=== PATIENT | male | born 1955 | race Caucasian/White ===

== ENCOUNTER → 2020-06-04 10:54 | Outpatient (BNVA) | payer MEDICARE, OTHER, SELFPAY | PROVIDERS: Family Provider Physician Assistant; PCP Physician Assistant; Visit Provider Nurse Practitioner Family | DX: R94.39 Abnormal result of other cardiovascular function study (principal); I35.0 Nonrheumatic aortic (valve) stenosis; I51.7 Cardiomegaly | CPT/HCPCS: 80048; 85025 ==

== ENCOUNTER → 2020-06-13 09:01 | Outpatient (BNVA) | payer MEDICARE, OTHER, SELFPAY | PROVIDERS: PCP Physician Assistant; Visit Provider Nurse Practitioner Family | DX: Z20.828 Contact with and (suspected) exposure to other viral communicable diseases (principal); I10 Essential (primary) hypertension; R94.39 Abnormal result of other cardiovascular function study | CPT/HCPCS: 80048; 85025; 85610; 87635 ==

== ENCOUNTER 2020-06-20 14:19 | Observation (INO) | payer MEDICARE, OTHER, SELFPAY ==
[2020-06-20] VITALS (10 sets, daily range): BP systolic 124–201; BP diastolic 81–97; PULSE 47–64; RESP 16–24; TEMP 36.3; O2SAT 94–98; BMI 26.3
--- NOTE | 2020-06-20 07:44 | XACV_ITS ---
Ht: 183 cm Wt: 88 kg BSA: 2.13 m2 Gender: Male : 1955 Any Known Allergies: Other Exam Priority: Routine Procedure(s): Procedure Description: Diagnostic procedure Diagnostic Cath Status: Elective Conclusions 1. FFR: After equalizing the distal and proximal pressure of FFR wire proximal to the lesion, mid LAD lesion was crossed with FFR wire.IFR was noted to be 0.96 which was not significant, IV adenosine at rate of 140 mcg/min was started. Patient did not compliant of any symptoms, at then end of two minutes FFR was recorded as 0.85, which was not significant . 2. Indication for 3. left heart cath: Abnormal stress test 4. , chest pressure, shortness of breath 5. . Recommendations * Usual post-cath care. * Maximal medical * management. Diagnostic RX Recommendation: medical therapy and/or counseling Pressures Phase:Rest AO : 133 / 77 ( 98 ) @ 4:56:00 AM 119 / 72 ( 89 ) @ 5:20:00 AM 139 / 73 ( 98 ) @ 5:20:00 AM LV : 168 / 6 / @ 5:17:00 AM 114 / 17 / @ 5:18:00 AM 172 / -1 / @ 5:19:00 AM 183 / -1 / @ 5:19:00 AM 170 / -4 / @ 5:20:00 AM 161 / -1 / @ 5:20:00 AM RV : 49 / 5 / @ 4:42:00 AM PA : 55 / 20 ( 30 ) @ 4:39:00 AM RA : a wave = v wave = mean = 11 @ 4:46:00 AM O2 Content Phase:Rest PA : O2 Content O2: 57.2 @ 4:56:00 AM Saturations Phase:Rest AO : 88 @ 5:17:00 AM RA : 57 @ 5:20:00 AM RV : 56 @ 5:20:00 AM PA : 57 @ 4:56:00 AM Cardiac Output Phase:Rest Yenifer : 5 @ 4:56:00 AM Yenifer Cardiac Index: 2 @ 4:56:00 AM Valves Phase:DefaultPhase AV : 37.0 @ 12:00:04 PM 37.0 @ 12:00:04 PM AV Mean Gradient: 27.0 @ 12:00:04 PM Clinical Evaluation EBL: 5mL-10mL Procedural Details Procedure Consent Obtained. Pre-Procedure Time Out. Identified patient by full name and date of as verbalized by the patient/guarantor. Does the consent match the physician's order: Yes. Accurate & Complete Informed Consent: Yes. Inpatient/Outpatient History & Physical on Chart: Yes. If H&P is completed, is and addenduem needed: No; If yes, is the addendum complete: N/A. Visualize and Verify Site with Patient/Guarantor: N/A. Relevant Radiology Images available: N/A. Pre-op teaching completed and patient verbalized understanding. The risks, benefits, and alternatives of sedation and/or procedure were discussed by physician. The patient agrees to continue. Procedure started. Baseline sample Acquired. HR: 56 BPM. [facility] Clinical Fraility Score: 3: Managing Well. [employer] Indications: Other. Chest Pain Symptom Assessment: Non-anginal Chest Pain. Correct patient, site and procedure confirmed by cath team. Current diagnosis: Chest Pain. PERRLA. Strong, equal hand food safety director bilaterally. Lungs clear x 5 lobes. IV Site on Arrival: 20 gauge in the left anticubital. IV Fluids: 0.9% NaCl at KVO. 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 Physician notified. Baseline sample Acquired. HR: 44 BPM. Patient's family unavailable. Physician arrived. Physician scrubbed in. Immediate Pre-Procedure Time Out. Lidocaine 1% infiltrated to the right brachial. Wire insterted throught the IV catheter. Iv catheter removed. Sheath wire insterted. [place]-Roxy MON catheter inserted. Oximetry samples were obtained. Normal venous range: 60-85%. Normal arterial range: 95-100%. Pressure measurements obtained. [place]-Roxy out. Lidocaine 1% infiltrated to the right radial. Arterial access obtained. A 5 tristanian TIG catheter in over wire. Multiple views taken of left coronary artery. Catheter redirected to the RCA. Multiple views taken of right coronary artery. Catheter removed over the exchange wire. A 5 tristanian Christopher catheter in over wire. Multiple views taken of left coronary artery. Catheter out. A 6 tristanian Angled Pig catheter in over wire. EDP Sample taken: LV 168/6,24; HR: 59 BPM; SpO2: 97%. EDP Sample taken: LV 114/17,6; HR: 46 BPM; SpO2: 97%. EDP Sample taken: LV 172/-2,21; HR: 54 BPM; SpO2: 97%. EDP Sample taken: LV 183/-2,27; HR: 54 BPM; SpO2: 98%. EDP Sample taken: LV 170/-5,17; HR: 56 BPM; SpO2: 96%. Pullback taken: LV 161/-2,22; AO 119/72(89); Mean: 27mmHg, Peak to Peak: 37mmHg, SEP: 17sec/min; HR: 56 BPM; SpO2: 95%. Catheter removed over the exchange wire. 6 tristanian XB 3.5 guide catheter was inserted over the wire. FFR guidewire was advanced through the guide catheter to lesion in the mid LAD. IFR IS 0.96. An FFR value of 0.85 was obtained for a lesion located at Mid LAD. Pressure wire removed. Angiography performed. Guide catheter removed. Physician review of films. Physician scrubbed out. A Manual Compression was successful obtaining hemostatsis at the Right Brachial Vein insertion site. A TR Band was successful obtaining hemostatsis at the Right Radial artery insertion site. TR band placed. Hemostasis obtained. Sheath(s) removed from brachial vein and manual pressure held until hemostasis was achieved. Sterile 4x4 and Op-site applied to the puncture site. No oozing or hematoma noted. Post sheath removal instructions were given and the patient verbalized understanding. Post Procedure: Pulses reassessed and unchanged. PERRLA. Strong, equal hand food safety director bilaterally. No VTE prophylaxis required. Medication's Wasted: Lidocaine 1% = 16 mL. Medication's Wasted: Nitro = 49.8 mg. Medication's Wasted: Adenosine = 25 mg. Medication's Wasted: Heparin = 4000 units. Total IV fluids: 152 mL. Medication's Wasted: Fentanyl = 50 mcg. Fluoro: 17:02. Contrast type used: Omnipaque 300 mgI/mL, 500 mL bottle. [id number]. Post-op diagnosis: Moderate LAD disease, Pre cappilary pulmonary HTN, Moderate Aortic Stenosis. Complications: None. Estimated blood loss: 5mL-10mL. Procedure completed. Patient transferred by wheelchair to [facility]. Access Site Site: Right Brachial Vein Sheath Size: 6 Fr Hemostasis Method: Manual Compression Hemostasis Success: Successful Site: Right Radial artery Sheath Size: 6 Fr Hemostasis Method: TR Band Hemostasis Success: Successful Procedure Medications Start: 10:12 AM Stop: 10:12 AM Medication: Versed Amount: 1 mg Route: I.V. Start: 10:12 AM Stop: 10:12 AM Medication: Fentanyl Amount: 50 mcg Route: I.V. Start: 10:29 AM Stop: 10:29 AM Medication: Versed Amount: 1 mg Route: I.V. Start: 10:47 AM Stop: 10:47 AM Medication: Versed Amount: 1 mg Route: I.V. Start: 10:47 AM Stop: 10:47 AM Medication: Fentanyl Amount: 50 mcg Route: I.V. Start: 10:51 AM Stop: 10:51 AM Medication: Nitrogylcerin Amount: 200 mcg Route: I.A. Start: 10:54 AM Stop: 10:54 AM Medication: Versed Amount: 1 mg Route: I.V. Start: 10:55 AM Stop: 10:55 AM Medication: Heparin Amount: 5000 units Route: I.V. Start: 11:16 AM Stop: 11:16 AM Medication: Versed 1 mg and Fentanyl 25 mcg Amount: 1 Route: I.V. Start: 11:35 AM Stop: 11:35 AM Medication: Versed 1 mg and Fentanyl 25 mcg Amount: 1 Route: I.V. Start: 11:37 AM Stop: 11:37 AM Medication: Heparin Amount: 2000 units Route: I.V. Start: 11:48 AM Stop: 11:48 AM Medication: Adenosine (Adenocard) Amount: 739 Route: I.V. bolus Start: 11:50 AM Stop: 11:50 AM Medication: Adenosine (Adenocard) I, the attending physician, have reviewed and verified all procedure medications. Yes, all medications given per verbal order History/Risk Factors Hypertension: Yes Dyslipidemia: No Peripheral Arterial Disease (PAD): No Myocardial Infarction (FL): No Obesity: No Renal Disease: No Tobacco Use: Former Prior Interventions PCI: No CABG: No Valve Surgery: No Report Signatures Finalized by Daniel Castellanos MD on 07/04/2020 07:43 PM
[2020-06-20] MEDS: diphenhydrAMINE 50 mg Capsule PO (08:06)
--- NOTE | 2020-06-20 10:19 | W.PM.OPSUD ---
Surgery/Procedure H&P Update DATE OF PROCEDURE: June 20, 2020 DATE H&P PERFORMED: 06/04/20 H&P UPDATE INFORMATION: I have reviewed H&P completed within last 30 days, I have examined patient prior to procedure and No changes to prior documentation PREOP DIAGNOSIS: Chest pain, shortness of breath, abnormal stress test PLANNED PROCEDURE: Operation Date: 06/20/20 08:30 Proposed Procedures p right and left Cardiac Catheterization I35.0 [id number](Bilateral) - Daniel Castellanos MD PATIENT REASSESSED PRIOR TO SEDATION, WITH NO CHANGE NOTED: Yes PHYSICAL EXAM: alert, oriented x 3, clear to auscultation bilaterally, regular rate & rhythm and operative site marked AIRWAY EVAL/ANESTHESIA PLAN: ASA II, Risks, benefits & alternatives of sedation and/or procedure discussed and Patient agrees to continue as planned ADDITIONAL INFORMATION: Patient has been explained all risk benefits alternative for the procedure by myself. Patient has been explained risk of arrhythmia, bleeding, , emergent bypass surgery, infection, compartment syndrome and hematoma
--- NOTE | 2020-06-20 12:24 | PC.NURSE ---
To CPRU Pt received to CPRU 3 from CCL. TR band intact to R radial access site. No bleeding or hematoma noted. Call light in reach, denies pain. Will monitor.
--- NOTE | 2020-06-20 12:47 | SUR.PHASEII ---
POST OP FLUIDS 100 ML/HR PER ORDERS.
--- NOTE | 2020-06-20 13:29 | SUR.PHASEII ---
TR BAND TR BAND DEFLATION BEGAN. NO HEMATOMA FORMATION NOTED AT THIS TIME. WILL CONTINUE TO MONITOR.
--- NOTE | 2020-06-20 13:58 | SUR.PHASEII ---
FLOOR TRANSFER Patient transferred to [facility] for extended recovery via wheelchair. Band deflated. Report off to Maria Luisa DURAN. No hematoma formation noted at this time.
== END 2020-06-20 15:10 | disposition home or self-care (01) ==
LOC: CSU 14:20
PROVIDERS: Admitting Provider Internal Medicine Cardiovascular Disease; PCP Family Medicine; Visit Provider Internal Medicine Cardiovascular Disease
DX: I25.10 Atherosclerotic heart disease of native coronary artery without angina pectoris (principal); R07.9 Chest pain, unspecified; R06.02 Shortness of breath; R94.39 Abnormal result of other cardiovascular function study; I35.0 Nonrheumatic aortic (valve) stenosis; I10 Essential (primary) hypertension; Z87.891 Personal history of nicotine dependence; Z79.82 Long term (current) use of aspirin
CPT/HCPCS: 12345; 93461; 93571; C1751; C1769; C1887; C1894; G0378; J0153; J1644; J2250; J3010; J3490; J7030; Q0163; Q9967